=== PATIENT | male | born 1985 | race Caucasian/White ===

== ENCOUNTER 2021-03-14 14:27 | Emergency (ER) | payer OTHER ==
[2021-03-14 16:44] LABS: BASOPHIL 0.6 % (0-2); EOSINOPHIL 5.2 % (0-5); HCT 43.6 % (42.0-52.0); HGB 14.6 g/dl (13.2-18.0); LYMPHOCYTE 34.9 % (15-48); MCH 30.2 pg (25.0-31.0); MCHC 33.5 g/dL (32.0-36.0); MCV 90.3 fL (78.0-100.0); MONOCYTE 6.9 % (0-12); MPV 9.9 fL (6.0-9.5); NEUTROPHIL 52.1 % (41-80); NRBC 0; PLT 256 K/uL (150-400); RBC 4.83 M/uL (4.70-6.00); RDW 12.7 % (11.5-14.0); WBC 7.8 K/uL (4.0-10.5)
[2021-03-14 17:14] LABS: INR 0.97 (0.9-1.2); PROTHROMBIN TIME 12.2 SECONDS (11.4-13.6); PTT 31.2 SECONDS (22.2-34.7)
[2021-03-14 17:15] LABS: D-DIMER 0.35 ug/mLFEU (0.00-0.41)
[2021-03-14 17:31] LABS: ALBUMIN 3.3 g/dL (3.4-5.0); BILIRUBIN - TOTAL 0.2 mg/dL (0.2-1.0); BUN/CREAT RATIO (CALC) 14.3 RATIO; CREATININE 0.84 mg/dL (0.67-1.17); GLOBULIN (CALCULATION) 3.7 g/dL; POTASSIUM 4.4 mmol/L (3.5-5.1)
[2021-03-14] MEDS ORDERED: NAPROXEN500 MG PO (19:07)
[2021-03-14] MEDS ORDERED: NORCO 5-325 TA1 EACH PO (19:07)
== END 2021-03-14 19:18 | disposition home or self-care (01) ==
LOC: FER 14:27
PROVIDERS: Emergency Medicine
DX: S22.42XA Multiple fractures of ribs, left side, initial encounter for closed fracture (principal); F17.210 Nicotine dependence, cigarettes, uncomplicated; Z88.0 Allergy status to penicillin; X58.XXXA Exposure to other specified factors, initial encounter
CPT/HCPCS: 36415; 71045; 71250; 80053; 84484; 85025; 85379; 85610; 85730; 93005; J1885

== ENCOUNTER 2021-09-19 01:12 | Emergency (ER) | payer OTHER ==
[~2021-09-19 01:12] MED LIST: NAPROXEN500 MG PO; NORCO 5-325 TA1 EACH PO
[2021-09-19 03:41] LABS: BASOPHIL 0.3 % (0-2); EOSINOPHIL 2.4 % (0-5); HCT 44.7 % (42.0-52.0); HGB 14.8 g/dl (13.2-18.0); LYMPHOCYTE 31.3 % (15-48); MCH 29.3 pg (25.0-31.0); MCHC 33.1 g/dL (32.0-36.0); MCV 88.5 fL (78.0-100.0); MONOCYTE 5.3 % (0-12); MPV 9.9 fL (6.0-9.5); NEUTROPHIL 60.5 % (41-80); NRBC 0; PLT 245 K/uL (150-400); RBC 5.05 M/uL (4.70-6.00); RDW 11.9 % (11.5-14.0); WBC 8.8 K/uL (4.0-10.5)
[2021-09-19 03:44] LABS: ALBUMIN 3.8 g/dL (3.4-5.0); BILIRUBIN - TOTAL 0.3 mg/dL (0.2-1.0); BUN/CREAT RATIO (CALC) 13.5 RATIO; CREATININE 0.74 mg/dL (0.67-1.17); GLOBULIN (CALCULATION) 3.4 g/dL; POTASSIUM 4.3 mmol/L (3.5-5.1); TOTAL PROTEIN 7.2 g/dL (6.4-8.2)
[2021-09-19] MEDS ORDERED: NEURONTIN300 MG PO (03:56)
[2021-09-19] MEDS ORDERED: KETOROLAC TROME10 MG PO (03:56)
[2021-09-20 13:10] LABS: LYME IGG/IGM AB <0.91 ISR (0.00-0.90)
== END 2021-09-19 04:30 | disposition home or self-care (01) ==
LOC: FER 01:12
PROVIDERS: Emergency Medicine Emergency Medical Services
DX: S62.326A Displaced fracture of shaft of fifth metacarpal bone, right hand, initial encounter for closed fracture (principal); F17.200 Nicotine dependence, unspecified, uncomplicated; Z88.0 Allergy status to penicillin; Z88.5 Allergy status to narcotic agent; W23.1XXA Caught, crushed, jammed, or pinched between stationary objects, initial encounter; Y92.009 Unspecified place in unspecified non-institutional (private) residence as the place of occurrence of the external cause
CPT/HCPCS: 36415; 73130; 80053; 85025; 86140; 86593; 86618; 96372; J1885